=== PATIENT | male | born 1995 | race Hispanic/Latino ===

== ENCOUNTER 2020-02-06 16:49 | Emergency (ER) | payer OTHER ==
--- NOTE | 2020-02-06 17:21 | XRay Report ---
CHEST 1 VIEW INDICATION / CLINICAL INFORMATION: Chest Pain. COMPARISON: None available. FINDINGS: SUPPORT DEVICES: None. HEART / MEDIASTINUM: No significant abnormality. LUNGS / PLEURA: No significant pulmonary or pleural abnormality. No pneumothorax. ADDITIONAL FINDINGS: No significant additional findings. IMPRESSION: No acute pulmonary or pleural abnormality Signer Name: Ramiro Dorman MD FACR Signed: 02/06/2020 5:16 PM Workstation Name: [id number]
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
[2020-02-06 18:53] LABS: Basophils # (Auto) 0.1 K/mm3 (0.0-0.1); Eosinophils # (Auto) 0.1 K/mm3 (0.0-0.4); Eosinophils % (Auto) 0.7 % (0.0-4.3); Hematocrit 42.5 % (35.5-45.6); Hemoglobin 14.7 gm/dl (11.8-15.2); Lymphocytes # (Auto) 2.9 K/mm3 (1.2-5.4); Lymphocytes % (Auto) 28.2 % (13.4-35.0); Mean Corpuscular HGB Conc 35 % (32-34); Mean Corpuscular Volume 80 fl (84-94); Monocytes % (Auto) 9.6 % (0.0-7.3); Platelet Count 355 K/mm3 (140-440); Red Blood Count 5.34 M/mm3 (3.65-5.03); Red Cell Distribution Width 13.7 % (13.2-15.2)
[2020-02-06 19:05] LABS: Alanine Aminotransferase 87 units/L (7-56); Albumin 4.1 g/dL (3.9-5); BUN/Creatinine Ratio 13; Blood Urea Nitrogen 9 mg/dL (9-20); Calcium 9.5 mg/dL (8.4-10.2); Hemolysis Index 8
[2020-02-06] MEDS ORDERED: SODIUM CHLORIDE 0.9% 1000 ML 1,000 ML IV ONE (19:07)
[2020-02-06 19:28] LABS: Bilirubin,Urine NEG (Negative); Blood,Urine NEG (Negative); Color,Urine Yellow (Yellow); Mucus,Urine FEW /HPF; Protein,Urine <15 mg/dL mg/dL (Negative); Urobilinogen,Urine < 2.0 mg/dL (<2.0)
[2020-02-06 19:35] LABS: Amphetamine Screen,Urine PRESUMPTIVE NEGATIVE; Benzodiazepines Screen,Urine PRESUMPTIVE NEGATIVE; Cannabinoid Screen,Urine PRESUMPTIVE NEGATIVE; Cocaine Screen,Urine PRESUMPTIVE NEGATIVE; Methadone Screen,Urine PRESUMPTIVE NEGATIVE; Opiate Screen,Urine PRESUMPTIVE NEGATIVE
[2020-02-06 19:55] VITALS: BP 142/86
== END 2020-02-06 19:55 | disposition home or self-care (01) ==
LOC: ED 16:49
DX: R07.89 Other chest pain (principal); R06.02 Shortness of breath; I49.8 Other specified cardiac arrhythmias; F15.929 Other stimulant use, unspecified with intoxication, unspecified; F14.90 Cocaine use, unspecified, uncomplicated; R79.89 Other specified abnormal findings of blood chemistry; Z79.899 Other long term (current) drug therapy
CPT/HCPCS: 36415; 71045; 80053; 80307; 81001; 82550; 84443; 84484; 85025; 85379; 93005; 93010; 99284; J7030; 80320; G0480

== ENCOUNTER 2021-03-30 11:00 | Emergency (ER) | payer SELFPAY ==
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
--- NOTE | 2021-03-30 11:48 | XRay Report ---
CHEST 2 VIEWS INDICATION / CLINICAL INFORMATION: chest pain. COMPARISON: 02/06/2020 FINDINGS: SUPPORT DEVICES: None. HEART / MEDIASTINUM: No significant abnormality. LUNGS / PLEURA: No significant pulmonary or pleural abnormality. No pneumothorax. ADDITIONAL FINDINGS: No significant additional findings. IMPRESSION: 1. No acute findings. Signer Name: Toñito Mcdonald MD Signed: 03/30/2021 11:44 AM Workstation Name: [id number]
[2021-03-30 12:55] LABS: Basophils % (Auto) 0.6 % (0.0-1.8); Eosinophils # (Auto) 0.2 K/mm3 (0.0-0.4); Eosinophils % (Auto) 1.8 % (0.0-4.3); Hematocrit 39.6 % (35.5-45.6); Hemoglobin 13.7 gm/dl (11.8-15.2); Lymphocytes # (Auto) 2.1 K/mm3 (1.2-5.4); Lymphocytes % (Auto) 24.6 % (13.4-35.0); Mean Corpuscular HGB Conc 35 % (32-34); Mean Corpuscular Volume 79 fl (84-94); Monocytes # (Auto) 0.7 K/mm3 (0.0-0.8); Monocytes % (Auto) 8.4 % (0.0-7.3); Platelet Count 320 K/mm3 (140-440); Red Blood Count 4.98 M/mm3 (3.65-5.03); Red Cell Distribution Width 13.8 % (13.2-15.2)
[2021-03-30 13:10] LABS: Alanine Aminotransferase 77 units/L (7-56); Albumin 4.2 g/dL (3.9-5); Blood Urea Nitrogen 10 mg/dL (9-20); Hemolysis Index 10
[2021-03-30 13:32] LABS: BUN/Creatinine Ratio 14
[2021-03-30 14:15] VITALS: BP 133/84
--- NOTE | 2021-04-02 11:41 | Electrocardiograph Report ---
[facility] Test Date: 2021-03-30 Test Time: 11:13:19 Pat Name: EVI WEATHERS Department: Room: Gender: M Senior Mechanical Designer: ABBY : 1995 Requested By: CAROL LEHMAN Order Number: [id number] Reading MD: Sb Campos Measurements Intervals [place] Rate: 106 P: 70 IA: 154 QRS: 31 QRSD: 77 T: 27 QT: 311 QTc: 413 Interpretive Statements Sinus tachycardia No previous ECG available for comparison Electronically Signed On 04-02-2021 11:41:00 EDT by Sb Campos
== END 2021-03-30 15:50 | disposition home or self-care (01) ==
LOC: ED 11:00
DX: R07.89 Other chest pain (principal); Z72.89 Other problems related to lifestyle; Z88.0 Allergy status to penicillin; Z79.899 Other long term (current) drug therapy
CPT/HCPCS: 36415; 71046; 80053; 84484; 85025; 93005; 99284